=== PATIENT | male | born 1955 | race African-American/Black ===

== ENCOUNTER 2020-08-28 23:32 | Emergency (ER) | payer OTHER ==
[~2020-08-28] VITALS: Ht 185.4 cm; Wt 113.4 kg
[~2020-08-28 23:32] MED LIST: ASPIRIN325 PO; COREG25 MG PO; HUMALOG PE100 UNIT/M SC; LANTUS100 UNIT/M SUBQ; LISINOPRIL10 MG PO; LISINOPRIL20 MG PO; LOPRESSOR25 PO; NORVASC5 M1 PO; PRAVACHOL40 MG PO
== END 2020-08-28 23:35 ==
LOC: ER 23:32
DX: I46.9 Cardiac arrest, cause unspecified (principal); I10 Essential (primary) hypertension; E11.9 Type 2 diabetes mellitus without complications; Z95.1 Presence of aortocoronary bypass graft; Z79.82 Long term (current) use of aspirin; Z79.4 Long term (current) use of insulin; Z79.899 Other long term (current) drug therapy